=== PATIENT | female | born 1935 | race Caucasian/White ===

== ENCOUNTER → 2018-06-24 | Outpatient (CLI) | payer MEDICARE, BC ==
[2016-09-28 12:45] VITALS: BMI 30.6
[~2018-06-24] MED LIST: ALBU8.5H12 IH; AML5 PO; AZIT-1 PO; BARIUM SULFATE 176 GM BTL PO ONE; BARIUM SULFATE 340 GM POWD ONE; CLON-327 PO; Cephalexin Monohydrate PO; DILT180C81 PO; DILT180T PO; Diltiazem Hcl PO; ENAL1TAB PO; ENAL1TAB35 PO; ENAL2.5T52 PO; ETOD-1 PO; ETOD200C26 PO; FEN145 PO; FOL1 PO; FOLI-68 PO; HYDR-653 PO; LOR5/325 PO; PANT40TA65 PO; POTA-28 PO; POTA-53 PO; POTA2.5T7 PO; POTA99TA6 PO; PRED20TA6 PO; Pantoprazole Sod PO; Sucralfate PO
--- NOTE | 2018-06-24 17:41 | RADIOLOGY IMAGING REPORT ---
FACILITY: [facility] PATIENT NAME: Orquidea Gracia : 1935 MR: [id number] V: [id number] EXAM DATE: ORDERING PHYSICIAN: MICHELLE CASTAÑEDA TECHNOLOGIST: Location: [facility] Patient: Orquidea Gracia : 1935 Visit/Account:[id number] Date of Sevice: 06/24/2018 Exam type: UPPER GI SERIES W/O AIR History: GERD Comparison: None. Findings: Double contrast upper GI series was performed with thick and thin barium and air contrast at least mo derate gastroesophageal reflux was observed. There is mild narrowing at the lower esophageal sphinct er. No abnormality of the stomach, duodenal bulb or duodenal C-loop was seen. The fluoroscopy dose area product was 518.14 micro-Proctor per meter squared IMPRESSION: 1. Moderate gastric esophageal reflux was observed with mild narrowing at the lower esophageal sphin cter. Report Dictated By: Lupe Donaldson MD at 06/24/2018 5:34 PM Report E-Signed By: Lupe Donaldson MD at 06/24/2018 5:37 PM WSN:[id number]
== END ==
LOC: RAD 04:34
PROVIDERS: ATTEND Family Medicine
DX: K21.0 Gastro-esophageal reflux disease with esophagitis (principal)
CPT/HCPCS: 74240

== ENCOUNTER → 2018-07-08 | Outpatient (CLI) | payer MEDICARE, BC ==
[2016-09-28 12:45] VITALS: BMI 30.6
[~2018-07-08] MED LIST changes: -BARIUM SULFATE 176 GM BTL PO ONE; -BARIUM SULFATE 340 GM POWD ONE
--- NOTE | 2018-07-08 12:06 | RADIOLOGY IMAGING REPORT ---
FACILITY: [facility] [place] PATIENT NAME: Orquidea Gracia : 1935 MR: [id number] V: [id number] EXAM DATE: ORDERING PHYSICIAN: MICHELLE CASTAÑEDA TECHNOLOGIST: Location: [facility] Patient: Orquidea Gracia : 1935 Visit/Account:[id number] Date of Sevice: 07/08/[address] scan without contrast HISTORY: Dizziness COMPARISONS: March 07, 2017 TECHNIQUE: Non-contrast head CT was performed with sagittal and coronal reformations. One of the following dose optimization techniques was utilized in the performance of this exam: autom ated exposure control; adjustment of the mA and/or kV according to patient size; or use of iterative reconstruction technique. Specific details can be referenced in the facility's radiology CT exam ope rational policy. FINDINGS: There is no intracranial hemorrhage, hydrocephalus or midline shift. The basal cisterns, myles-white differentiation, and convexity sulci are maintained. Normal orbital soft tissues. Mild unchanged pa tchy white matter hypoattenuation most pronounced in the left frontal periventricular and left subins ular region. Unchanged small left vertex dural calcification. Clear mastoid air cells. Mild right frontoethmoidal recess mucosal thickening. Normal osseous struc tures. IMPRESSION: No acute intracranial abnormality. Unchanged left frontal and left subinsular region chronic white matter hypoattenuation in keeping wit h residua of prior ischemia. Report Dictated By: Yoandy José MD at 07/08/2018 11:59 AM Report E-Signed By: Yoandy José MD at 07/08/2018 12:03 PM WSN:[id number]
== END ==
LOC: CT 05:08
PROVIDERS: ATTEND Family Medicine
DX: R26.89 Other abnormalities of gait and mobility (principal); R42 Dizziness and giddiness; R20.2 Paresthesia of skin; R27.0 Ataxia, unspecified
CPT/HCPCS: 70450

== ENCOUNTER 2018-12-25 11:30 | Emergency (ER) | payer BC, MEDICARE ==
[2016-09-28 12:45] VITALS: BMI 30.6
--- NOTE | 2018-12-25 11:46 | ER Report ---
History and Physical Time Seen By MD: 11:46 HPI/ROS CHIEF COMPLAINT: High blood pressure and chest pain HISTORY OF PRESENT ILLNESS: This is an 83-year-old female who presents to emergency department for high blood pressure. She noticed her blood pressure was 185 systolic last night, around the same time she took her blood pressure she was starting to have some chest pain, she states she has a history of GERD, didn't think much of it, continued through the night, she did take some clonidine which did improve the discomfort as well as her blood pressure, currently her blood pressure is 154/80, she had some nausea no vomiting. She denies diaphoresis. No shortness of breath. No rashes. No recent fevers or chills. REVIEW OF SYSTEMS: Constitutional: No fever, no chills. Eyes: No discharge. ENT: No sore throat. Cardiovascular: As above. Respiratory: No cough, no shortness of breath. Gastrointestinal: No abdominal pain, no vomiting. Genitourinary: No hematuria. Musculoskeletal: No back pain. Skin: No rashes. Neurological: No headache. Allergies: Coded Allergies: Penicillins (Verified Allergy, Severe, RASH,SWELLING, 03/07/17) Sulfa (Sulfonamide Antibiotics) (Verified Allergy, Mild, 03/07/17) codeine (Verified Allergy, Mild, 03/07/17) Home Meds Active Scripts Hydrocodone Bit/Acetaminophen (HYDROCODON-ACETAMINOPHEN 5-325) 1 Each Tablet, 1 EACH PO Q4-6H PRN for PAIN, #30 TAB Prov:JAIRO LOU MD 09/28/16 Reported Medications Clonidine Hcl (CLONIDINE HCL) 0.1 Mg Tablet, 1 TAB PO PRN, #30 03/07/17 Folic Acid (FOLIC ACID) 1 Mg Tablet, 1 MG PO QDAY, TAB 09/28/16 Diltiazem Hcl (DILTIAZEM ER) 180 Mg Cap.er.deg, 180 MG PO DAILY 09/28/16 Enalapril/Hydrochlorothiazide (ENALAPRIL-HCTZ 10-25 MG TABLET) 1 Each Tablet, 1 EACH PO DAILY 07/24/16 Potassium Chloride (POTASSIUM CHLORIDE) 10 Meq Tab.er.prt, 10 MEQ PO BID 07/24/16 Pantoprazole Sodium (PANTOPRAZOLE SODIUM) 40 Mg Tablet.dr, 40 MG PO BID, TAB.SR 03/19/15 Fenofibrate,Micronized (Tricor) 145 Mg Tablet, 145 MG PO DAILY, 0 Refills 04/15/10 Past Medical/Surgical History The patient has a past medical and surgical history of nondiabetic neuropathy, heart murmur, intrafibrillation occasionally, hypertension, pneumonia, GERD, gastric ulcer, hiatal hernia, arthritis, osteoporosis, cataracts, wears glasses, hard of hearing, knee surgery, foot surgery, 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 Reviewed Nurses Notes: Yes Hx Smoking: No Smoking Status: Never Smoker Exposure to Second Hand Smoke?: No Hx Substance Use Disorder: No Hx Alcohol Use: No Constitutional Vital Sign - Last 24 Hours 12/25/18 12/25/18 12/25/18 12/25/18 11:30 11:45 11:49 11:50 Temp 98.0 Pulse ??? 75 Resp 20 B/P (MAP) 154/79 (104) 154/79 154/80 (104) Pulse Ox 95 O2 Delivery Room Air 12/25/18 12/25/18 12/25/18 12/25/18 11:55 12:00 12:05 12:15 Pulse 68 Resp 14 B/P (MAP) 155/73 (100) 172/80 (110) 147/88 (107) 158/84 (108) Pulse Ox 95 12/25/18 12/25/18 12/25/18 12/25/18 12:28 12:30 12:45 13:00 Pulse 68 Resp 18 10 B/P (MAP) 173/81 (111) 151/78 (102) 152/86 (108) 148/68 (94) Pulse Ox 93 93 12/25/18 13:30 Resp 10 B/P (MAP) 146/97 (113) Pulse Ox 96 Physical Exam General Appearance: The patient is alert, has no immediate need for airway protection and no signs of toxicity. Eyes: Pupils equal and round no pallor or injection. ENT, Mouth: Mucous membranes are moist. Respiratory: There are no retractions, lungs are clear to auscultation. Cardiovascular: Regular rate and rhythm. No murmurs, clicks or rubs. Gastrointestinal: Abdomen is soft and non tender, no masses, bowel sounds normal. Neurological: Alert and oriented 4. Moving all cavities. Falling. No focal ne uro deficits. Skin: Warm and dry, no rashes. Musculoskeletal: Neck is supple non tender. Extremities are nontender, nonswollen and have full range of motion. DIFFERENTIAL DIAGNOSIS: After history and physical exam differential diagnosis was considered for chest pain including but not limited to myocardial ischemia, pericarditis pulmonary embolus, chest wall pain, pleural inflammation and p ulmonary infectious causes. Medical Decision Making Data Points Result Diagram: 12/25/18 1204 12/25/18 1204 Laboratory Hematology Test 12/25/18 12:04 Red Blood Count 4.43 M/uL (4.17-5.56) Mean Corpuscular Volume 89.8 fL (80.0-96.0) Mean Corpuscular Hemoglobin 29.9 pg (26.0-33.0) Mean Corpuscular Hemoglobin Concent 33.3 g/dL (32.0-36.0) Red Cell Distribution Width 13.9 % (11.5-14.5) Mean Platelet Volume 9.2 fL (7.2-11.1) Neutrophils (%) (Auto) 53.3 % (39.4-72.5) Lymphocytes (%) (Auto) 32.0 % (17.6-49.6) Monocytes (%) (Auto) 12.2 % (4.1-12.4) Eosinophils (%) (Auto) 1.5 % (0.4-6.7) Basophils (%) (Auto) 1.0 % (0.3-1.4) Nucleated RBC Relative Count (auto) 0.1 /100WBC Neutrophils # (Auto) 1.8 K/uL (2.0-7.4) Lymphocytes # (Auto) 1.1 K/uL (1.3-3.6) Monocytes # (Auto) 0.4 K/uL (0.3-1.0) Eosinophils # (Auto) 0.1 K/uL (0.0-0.5) Basophils # (Auto) 0.0 K/uL (0.0-0.1) Nucleated RBC Absolute Count (auto) 0.00 K/uL Sodium Level 140 mmol/L (137-145) Potassium Level 3.6 mmol/L (3.5-5.0) Chloride Level 106 mmol/L (98-107) Carbon Dioxide Level 25 mmol/L (22-31) Blood Urea Nitrogen 28 mg/dl (7-18) Creatinine 1.30 mg/dl (0.52-1.04) Glomerular Filtration Rate Calc 38.9 Random Glucose 96 mg/dl (75-110) Calcium Level 9.9 mg/dl (8.4-10.2) Total Bilirubin 0.6 mg/dl (0.2-1.3) Aspartate Amino Transf (AST/SGOT) 35 U/L (0-35) Alanine Aminotransferase (ALT/SGPT) 17 U/L (0-56) Alkaline Phosphatase 64 U/L (0-126) Troponin I < 0.012 ng/ml Total Protein 8.2 g/dl (6.3-8.2) Albumin 4.6 g/dl (3.5-5.0) Chemistry Test 12/25/18 12:04 White Blood Count 3.3 k/uL (4.5-11.0) Red Blood Count 4.43 M/uL (4.17-5.56) Hemoglobin 13.2 g/dL (12.0-16.0) Hematocrit 39.7 % (34.0-47.0) Mean Corpuscular Volume 89.8 fL (80.0-96.0) Mean Corpuscular Hemoglobin 29.9 pg (26.0-33.0) Mean Corpuscular Hemoglobin Concent 33.3 g/dL (32.0-36.0) Red Cell Distribution Width 13.9 % (11.5-14.5) Platelet Count 211 K/uL (150-450) Mean Platelet Volume 9.2 fL (7.2-11.1) Neutrophils (%) (Auto) 53.3 % (39.4-72.5) Lymphocytes (%) (Auto) 32.0 % (17.6-49.6) Monocytes (%) (Auto) 12.2 % (4.1-12.4) Eosinophils (%) (Auto) 1.5 % (0.4-6.7) Basophils (%) (Auto) 1.0 % (0.3-1.4) Nucleated RBC Relative Count (auto) 0.1 /100WBC Neutrophils # (Auto) 1.8 K/uL (2.0-7.4) Lymphocytes # (Auto) 1.1 K/uL (1.3-3.6) Monocytes # (Auto) 0.4 K/uL (0.3-1.0) Eosinophils # (Auto) 0.1 K/uL (0.0-0.5) Basophils # (Auto) 0.0 K/uL (0.0-0.1) Nucleated RBC Absolute Count (auto) 0.00 K/uL Glomerular Filtration Rate Calc 38.9 Calcium Level 9.9 mg/dl (8.4-10.2) Total Bilirubin 0.6 mg/dl (0.2-1.3) Aspartate Amino Transf (AST/SGOT) 35 U/L (0-35) Alanine Aminotransferase (ALT/SGPT) 17 U/L (0-56) Alkaline Phosphatase 64 U/L (0-126) Troponin I < 0.012 ng/ml Total Protein 8.2 g/dl (6.3-8.2) Albumin 4.6 g/dl (3.5-5.0) EKG/Imaging EKG Interpretation 12 lead EKG: Time of EKG 1149. Rhythm: Normal sinus rhythm, ventricular rate [address]: normal QRS: normal ST segments: No ST depression or elevation identified. No significant changes from the 03/07/2017 EKG. Imaging PATIENT NAME: Orquidea Gracia : 1935 MR: [id number] V: [id number] EXAM DATE: ORDERING PHYSICIAN: NIYAH RANDLE TECHNOLOGIST: Location: [facility] [place] Patient: Orquidea Gracia : 1935 Visit/Account:[id number] Date of Sevice: 12/25/2018 CHEST PA LAT History: Chest Pain FINDINGS: Comparison studies: Comparison chest x-ray 03/07/2017 Tubes and Lines: None. Lungs and pleura: Mild hyperaeration is stable from previous exam.. No evidence of focal consolidation or pleural effusions. Mediastinum: normal. Cardiac silhouette: normal . Osseous structures: Unremarkable for age . IMPRESSION: No acute cardiopulmonary pathology identified. Report Dictated By: James Azevedo MD at 12/25/2018 1:20 PM Report E-Signed By: James Azevedo MD at 12/25/2018 1:22 PM WSN:[id number] ED Course/Re-evaluation Clinical Indication for ER IV: IV Access ED Course The patient was admitted to room. A history and physical obtained. Differential diagnoses were considered. An IV was started. A CBC, CMP, troponin were obtained. EKG showing normal sinus rhythm. Lab studies unremarkable other than white count 3.3 and the creatinine of 1.3. Negative troponin. The patient's discomfort began last night, no delta troponin ordered at this time. Acute review the results with the patient. She was given a GI cocktail, symptoms have resolved in the emergency department. Negative two-view chest x-ray. She was given a liter of fluid. I did recommend not checking her blood pressure so frequently, as this could be contributed to the elevated blood pressure as well, I did recommend following up with Dr. Calderon as soon as possible they can reevaluate her blood pressure medications. Patient had no other questions or concerns at this time and was discharged home. Patient was agreeable with this plan of care. Decision to Disposition Date: December 25, 2018 Decision to Disposition Time: 13:32 Depart Departure Latest Vital Signs Vital Signs Date Time Temp Pulse Resp B/P (MAP) Pulse Ox O2 Delivery O2 Flow Rate FiO2 12/25/18 13:30 10 146/97 (113) 96 12/25/18 12:30 68 12/25/18 11:49 98.0 Room Air Impression: Primary Impression: Chest pain, non-cardiac Additional Impressions: History of hypertension Acid reflux disease Condition: Improved Disposition: HOME OR SELF-CARE Referrals: MICHELLE CALDERON DO (PCP) 5 Days Patient Instructions: Gastroesophageal Reflux Disease (ED), Hypertension (ED) Additional Instructions: There were no concerning findings on your Xray or EKG. The blood work looked good, your kidney function was slightly elevated, sometimes medications can cause this as well as hydration status, please have Dr. Calderon recheck when you follow up. Continue taking your regular medications. You may need to change your blood pressure medication, this is something you can do with Dr. Calderon. I would recommend not checking your blood pressure so frequently, unless you feel symptomatic. Drink plenty of water. Get plenty of rest. Return to the ED for any other concerns or worsening symptoms. Problem Qualifiers Additional Impressions: Acid reflux disease Esophagitis presence: esophagitis presence not specified Qualified Codes: K21.9 - Gastro-esophageal reflux disease without esophagitis NIYAH RANDLE TIPPLE REPAIRER-BC December 25, 2018 11:46
[2018-12-25] MEDS ORDERED: ASPIRIN 81 MG CHEW PO ONE (11:50)
[2018-12-25] MEDS ORDERED: ONDANSETRON 4 MG/2 ML VIAL IVP ONE (11:50)
[2018-12-25] MEDS ORDERED: NS(*) 0.9% 1000 ML BAG 1,000 ML IV ONE (11:50)
[2018-12-25 12:13] LABS: PLATELET COUNT, AUTOMATED 211 K/uL (150-450)
--- NOTE | 2018-12-25 12:33 | EKG ---
FACILITY: [facility] [place] PATIENT NAME: VINCENZO BERNARD : [id number] MR: [id number] V: [id number] EXAM DATE: ORDERING PHYSICIAN: NIYAH RANDLE TECHNOLOGIST: AL Pryor Reason : Blood Pressure : / mmHG Vent. Rate : 068 BPM Atrial Rate : 068 BPM P-R Int : 206 ms QRS Dur : 110 ms QT Int : 402 ms P-R-T Axes : 081 001 006 degrees QTc Int : 427 ms Sinus rhythm Probable left atrial enlargement Q waves III, AVF - question previous infarct Nonspecific interventricular conduction delay Abnormal ECG Confirmed by KENDELL MITCHELL ([id number]) on 12/25/2018 9:26:42 PM Referred By: Confirmed By:KENDELL MITCHELL
--- NOTE | 2018-12-25 13:25 | RADIOLOGY IMAGING REPORT ---
[facility]AC[facility] PATIENT NAME: Orquidea Gracia : 1935 MR: [id number] V: [id number] EXAM DATE: ORDERING PHYSICIAN: NIYAH RANDLE TECHNOLOGIST: [place] [facility] [place]: Orquidea Gracia : 1935 Visit/Account:[id number] Date of Sevice: 12/25/2018 CHEST PA LAT History: Chest Pain FINDINGS: Comparison studies: Comparison chest x-ray 03/07/2017 Tubes and Lines: None. Lungs and pleura: Mild hyperaeration is stable from previous exam.. No evidence of focal consolida tion or pleural effusions. Mediastinum: normal. Cardiac silhouette: normal . Osseous structures: Unremarkable for age . IMPRESSION: No acute cardiopulmonary pathology identified. Report Dictated By: James Azevedo MD at 12/25/2018 1:20 PM Report E-Signed By: James Azevedo MD at 12/25/2018 1:22 PM [id number]
[2018-12-25 13:30] VITALS: BP 146/97
[2018-12-25] MEDS ORDERED: LIDOCAINE 2% VISC SLN 15ML UDC PO ONE (13:35)
[2018-12-25] MEDS ORDERED: MAG HYD/AL HYD/SIMETH 30ML UDC PO ONE (13:35)
== END 2018-12-25 13:57 | disposition home or self-care (01) ==
LOC: ER 11:45
DX: K21.9 Gastro-esophageal reflux disease without esophagitis (principal); R07.9 Chest pain, unspecified; I10 Essential (primary) hypertension
CPT/HCPCS: 71046; 84484; 85025; 93005; 96361; 96374; 99284; A9270; J2405; J7030; 82040; 82247; 82310; 82374; 82435; 82565; 82947; 84075; 84132; 84155; 84295; 84450; 84460; 84520

== ENCOUNTER → 2019-01-27 | Outpatient (CLI) | payer MEDICARE ==
[2016-09-28 12:45] VITALS: BMI 30.6
== END ==
LOC: US 02:56
PROVIDERS: ATTEND Nurse Practitioner Family
DX: I35.1 Nonrheumatic aortic (valve) insufficiency (principal)
CPT/HCPCS: 93306

== ENCOUNTER 2019-03-18 23:44 | Inpatient (IN) | payer MEDICARE ==
[2016-09-28 12:45] VITALS: Wt 78.7 kg
[~2019-03-18 23:44] MED LIST changes: -CALC-901 PO; -CHOL10005 PO; -LACT1CAP6 PO; -MAGN400T52 PO; -NIAC500T85 PO; -RIVA1TAB PO; -VITA-197 PO; -ZINC50TA9 PO; -[UNRECOGNIZED DRUG - CODE] PO
--- NOTE | 2019-03-18 23:55 | ER Report ---
History and Physical Time Seen By MD: 23:49 Hx. of Stated Complaint: chest pain on sat. did not call ems. tonight had cp at 7pm, it resolved. this episode began 10-15 minutes ago HPI/ROS CHIEF COMPLAINT: chest pain and shortness of breath HISTORY OF PRESENT ILLNESS: This is an 84 year old female. She has been having chest pain tonight. Lower sternal area. Not sharp, but not squeezing either. No radiation. Came on at rest at about 1900 hours. Took a Clonidine tablets because her blood pressure was high, and the chest pain went away. The shortness of breath did not go away. She feels very short of breath with even just standing up. She has had some mild shortness of breath since the weekend. She also had an episode of chest pain on Sunday which she thought was reflux and eventually went away. She had another episode of chest pain tonight about 2330 hours and decided she needed to come to the hospital. EMS found her saturations to be low 80s on room air. Improved to 95% on 4 liters by nasal canula. She denies any nausea. She denies cough or fevers. Currently having a workup by her primary nurse practitioner for edema and diastolic dysfunction with recent echo and follow-up next week. REVIEW OF SYSTEMS: Constitutional: No fever or chills. Eyes: Poor vision, unchanged tonight. ENT: No sore throat. No congestion. Hard of hearing. Cardiovascular: As above. Respiratory: As above. Gastrointestinal: Some epigastric discomfort. No change in bowel movements. Genitourinary: No dysuria or frequency. Musculoskeletal: Chronic joint pain, but nothing new. Skin: No rashes. Neurological: Feels very fatigued and has chronic peripheral neuropathy. Allergies: Coded Allergies: Penicillins (Verified Allergy, Severe, RASH,SWELLING, 03/18/19) morphine (Verified Allergy, Intermediate, 03/18/19) Sulfa (Sulfonamide Antibiotics) (Verified Allergy, Mild, 03/18/19) codeine (Verified Allergy, Mild, 03/18/19) Home Meds Reported Medications Calcium Citrate/Vitamin D3 (CALCIUM CITRATE - VIT D CAPLET) 1 Each Tablet, 6 TAB PO QDAY 1200 MG CALCIUM WITH 1500 IU VIT D 03/19/19 Zinc (ZINC) 50 Mg Tablet, 50 MG PO QHS 03/19/19 Niacin (NIACIN) 500 Mg Tablet, 500 MG PO QHS 03/19/19 Lactobacillus Combination No.4 (PROBIOTIC) 1 Each Capsule, 1 CAP PO QDAY, CAPSULE BRAND: FORTIFY 50 BILLION 03/19/19 Magnesium Oxide (MAGOX 400) 400 Mg Tablet, 4 TAB PO QDAY 03/19/19 Cholecalciferol (Vitamin D3) (VITAMIN D3) 1,000 Unit Tablet, 2000 UNIT PO DAILY, TAB 03/19/19 Cyanocobalamin (Vitamin B-12) (Vitamin B-12) 3,000 Mcg Capsule, 2 CAP PO BID 03/19/19 Vitamin E Mixed (VITAMIN E) 400 Unit Capsule, 400 UNIT PO QDAY, CAPSULE 03/19/19 Folic Acid (FOLIC ACID) 1 Mg Tablet, 1 MG PO QDAY, TAB 09/28/16 Diltiazem Hcl (DILTIAZEM ER) 180 Mg Cap.er.deg, 180 MG PO DAILY 09/28/16 Enalapril/Hydrochlorothiazide (ENALAPRIL-HCTZ 10-25 MG TABLET) 1 Each Tablet, 2 TAB PO QAM 07/24/16 Potassium Chloride (POTASSIUM CHLORIDE) 10 Meq Tab.er.prt, 10 MEQ PO BID 07/24/16 Pantoprazole Sodium (PANTOPRAZOLE SODIUM) 40 Mg Tablet.dr, 40 MG PO BID, TAB.SR 03/19/15 Fenofibrate,Micronized (Tricor) 145 Mg Tablet, 145 MG PO DAILY, 0 Refills 04/15/10 Discontinued Reported Medications Clonidine Hcl (CLONIDINE HCL) 0.1 Mg Tablet, 1 TAB PO PRN, #30 03/07/17 Discontinued Scripts Hydrocodone Bit/Acetaminophen (HYDROCODON-ACETAMINOPHEN 5-325) 1 Each Tablet, 1 EACH PO Q4-6H PRN for PAIN, #30 TAB Prov:JAIRO LOU MD 09/28/16 Past Medical/Surgical History Past medical: history of atrial fibrillation, Hypertension, Hyperlipidemia, GERD, ulcer disease with bleeding ulcer, hypokalemia, non-diabetic peripheral neuropathy, osteoarthritis, hard of hearing. Has history of heart murmur. Recent workup for peripheral edema. Cataracts. Surgical history: inguinal hernia repair for encarcerated R inguinal hernia, knee surgery, foot surgery, spinal cord tumor surgery in 1986, Tonsillectomy. Reviewed Nurses Notes: Yes Hx Smoking: No Smoking Status: Never Smoker Exposure to Second Hand Smoke?: No Hx Substance Use Disorder: No Hx Alcohol Use: No Constitutional Vital Sign - Last 24 Hours 03/18/19 03/18/19 03/18/19 03/18/19 23:42 23:44 23:52 23:59 Temp 98.4 Pulse 95 94 89 Resp 26 17 B/P (MAP) 170/104 Pulse Ox 96 95 99 O2 Delivery Nasal Cannula O2 Flow Rate 3.0 03/19/19 03/19/19 03/19/19 03/19/19 00:00 00:14 00:29 00:30 Pulse 86 79 Resp 25 14 B/P (MAP) 150/88 (108) 136/87 (103) Pulse Ox 98 95 03/19/19 03/19/19 03/19/19 03/19/19 00:35 00:50 01:00 01:05 Pulse 77 ? Resp 21 B/P (MAP) ???/??? (1665) Pulse Ox 95 03/19/19 03/19/19 03/19/19 03/19/19 01:14 01:20 01:30 01:50 Pulse 77 78 Resp 18 21 B/P (MAP) 171/75 (107) 133/99 (110) Pulse Ox 97 95 03/19/19 03/19/19 03/19/19 03/19/19 02:00 02:05 02:10 02:25 Pulse 80 76 74 Resp 17 19 B/P (MAP) 165/103 (123) Pulse Ox 95 93 03/19/19 03/19/19 03/19/19 03/19/19 02:30 02:40 02:55 03:08 Pulse 67 68 Resp 16 13 B/P (MAP) 146/89 (108) 161/99 (119) Pulse Ox 95 95 03/19/19 03/19/19 03/19/19 03/19/19 03:10 03:15 03:30 03:45 Pulse 90 78 70 70 Resp 34 10 11 19 B/P (MAP) 130/93 (105) Pulse Ox 96 96 96 96 03/19/19 03/19/19 03/19/19 03/19/19 04:00 04:15 04:20 04:30 Pulse 69 66 64 Resp 16 14 15 B/P (MAP) 132/82 (99) 111/81 (91) Pulse Ox 95 95 96 03/19/19 03/19/19 03/19/19 03/19/19 04:35 04:50 05:00 05:05 Pulse 62 68 64 Resp 16 22 15 B/P (MAP) 134/79 (97) Pulse Ox 96 96 96 03/19/19 03/19/19 03/19/19 03/19/19 05:20 05:25 05:30 05:40 Pulse 60 59 70 Resp 16 24 19 B/P (MAP) 140/81 (100) Pulse Ox 97 97 97 03/19/19 03/19/19 03/19/19 03/19/19 05:54 05:55 06:00 06:10 Pulse 83 71 Resp 23 21 B/P (MAP) 155/84 (107) 147/89 (108) Pulse Ox 98 97 03/19/19 03/19/19 03/19/19 03/19/19 06:25 06:30 06:35 06:40 Pulse 65 65 65 64 Resp 17 21 17 19 B/P (MAP) 133/117 (122) Pulse Ox 97 97 97 96 03/19/19 03/19/19 03/19/19 03/19/19 06:45 06:50 06:55 06:57 Pulse 64 65 64 Resp 18 16 14 B/P (MAP) 145/92 (109) Pulse Ox 97 97 96 03/19/19 07:00 Pulse 71 Resp 14 B/P (MAP) 162/92 (115) Pulse Ox 97 Physical Exam General Appearance: The patient is alert. Somewhat anxious. Non-toxic in appearance. Eyes: Pupils are equal, round. Reactive to light. No pallor, injection or icterus. Extraocular movements are intact. ENT: Mucous membranes are moist. Normal oral mucosa. Posterior oropharynx is no rmal. Neck: Supple and non tender. No lymphadenopathy. Respiratory: She is short of breath with any small activity, even brief transfers. Lungs are clear to auscultation. Cardiovascular: Regular rate and rhythm. Has a 2/6 systolic murmur. No gallop or rub noted. Normal capillary refill. Has 2+ peripheral edema in ankles, trace mid-tibia. Gastrointestinal: Abdomen is soft, with some discomfort in epigastric area that she states she always has. No rebound or guarding. No masses or organomegaly. Normal active bowel sounds. No costovertebral angle tenderness with percussion. Neurological: Alert and oriented x3. Cranial nerves II through XII show no acute deficits on exam. No focal neurologic deficits in the extremities. Skin: Warm and dry. No rashes. Musculoskeletal: Extremities are nontender. Full range of motion. No tenderness in palpation of the cervical, thoracic and lumbar spine. No chest wall tenderness with palpation. DIFFERENTIAL DIAGNOSIS: After history and physical exam, differential diagnosis was considered for chest pain and shortness of breath including but not limited to myocardial ischemia, heart attack, pericarditis, pulmonary embolus and pulmonary infectious causes. Medical Decision Making Data Points Result Diagram: 03/19/19 0558 03/19/19 0558 Laboratory Hematology Test 03/19/19 05:58 White Blood Count 5.1 k/uL (4.5-11.0) Red Blood Count 4.02 M/uL (4.17-5.56) L Hemoglobin 12.4 g/dL (12.0-16.0) Hematocrit 36.1 % (34.0-47.0) Mean Corpuscular Volume 89.6 fL (80.0-96.0) Mean Corpuscular Hemoglobin 30.8 pg (26.0-33.0) Mean Corpuscular Hemoglobin Concent 34.4 g/dL (32.0-36.0) Red Cell Distribution Width 14.3 % (11.5-14.5) Platelet Count 151 K/uL (150-450) Mean Platelet Volume 9.1 fL (7.2-11.1) Neutrophils (%) (Auto) 55.8 % (39.4-72.5) Lymphocytes (%) (Auto) 28.9 % (17.6-49.6) Monocytes (%) (Auto) 12.8 % (4.1-12.4) H Eosinophils (%) (Auto) 1.9 % (0.4-6.7) Basophils (%) (Auto) 0.6 % (0.3-1.4) Nucleated RBC Relative Count (auto) 0.1 /100WBC Neutrophils # (Auto) 2.8 K/uL (2.0-7.4) Lymphocytes # (Auto) 1.5 K/uL (1.3-3.6) Monocytes # (Auto) 0.6 K/uL (0.3-1.0) Eosinophils # (Auto) 0.1 K/uL (0.0-0.5) Basophils # (Auto) 0.0 K/uL (0.0-0.1) Nucleated RBC Absolute Count (auto) 0.00 K/uL Chemistry Test 03/18/19 23:35 03/19/19 00:00 03/19/19 05:58 B-Type Natriuretic Peptide 148 pg/ml (0-100) Amylase Level 84 U/L (0-110) Lipase 119 U/L (23-300) Sodium Level 135 mmol/L (137-145) Potassium Level 3.7 mmol/L (3.5-5.0) Chloride Level 102 mmol/L (98-107) Carbon Dioxide Level 23 mmol/L (22-31) Blood Urea Nitrogen 25 mg/dl (7-18) Creatinine 1.10 mg/dl (0.52-1.04) Glomerular Filtration Rate Calc 47.1 Random Glucose 98 mg/dl (75-110) Calcium Level 9.4 mg/dl (8.4-10.2) Total Bilirubin 0.7 mg/dl (0.2-1.3) Aspartate Amino Transf (AST/SGOT) 33 U/L (0-35) Alanine Aminotransferase (ALT/SGPT) 32 U/L (0-56) Alkaline Phosphatase 60 U/L (0-126) Troponin I 0.131 ng/ml Total Protein 7.1 g/dl (6.3-8.2) Albumin 3.9 g/dl (3.5-5.0) Coagulation Test 03/18/19 23:35 D-Dimer Quantitative (PE/DVT) 7.55 ug/ml (0-0.50) EKG/Imaging EKG Interpretation 12 lead EKG: Rhythm: Normal sinus rhythm, rate 83 [place]: normal QRS: Q waves noted in leads 3 and aVF, unchanged from prior EKGs ST segments: Nonspecific ST and T-wave changes without any elevation or depression that would meet criteria for ischemia Imaging CHEST SINGLE AP 03/19/2019 00:05 hours. HISTORY: Chest Pain. COMPARISON: 12/25/2018 and studies dating to 07/09/2014. TECHNIQUE: Portable AP view of the chest. FINDINGS: TUBES/LINES/HARDWARE: None. PULMONARY/PLEURA: Right lung is clear. There is linear atelectasis or scarring in the left lateral lower lung field, unchanged. There is no pneumothorax or pleural effusion. CARDIOMEDIASTINAL: The cardiac silhouette is enlarged, stable. The mediastinal silhouette is within normal limits. There is mild aortic calcification. BONES/SOFT TISSUES: No acute osseous abnormality. The visible abdomen is normal. IMPRESSION: 1. No acute cardiopulmonary process. Report Dictated By: Sowmya Waldrop at 03/19/2019 1:[address] angiogram of the chest: Indication: Chest pain and dyspnea. Technique: Helical CT was performed through the chest following IV contrast enha ncement with 75 cc of Isovue 370. Multiplanar reconstructions and MIP images are reviewed. One of the following dose optimization techniques was utilized in the performance of this exam: Automated exposure control; adjustment of the mA and/or kV according to the patient's size; or use of an iterative reconstruction technique. Specific details can be referenced in the facility's radiology CT exam operational policy. Comparison: None available. Pulmonary arteries: There are bilateral acute pulmonary emboli. On the left, there is a saddle embolus at the bifurcation of the left main pulmonary artery, with extensive clot extending into the left upper and lower lobes. On the right, there are moderate-sized emboli in the right upper lobe and right lower lobe, and there are small emboli in the right middle lobe. There is no evidence of embolus in the main pulmonary artery. The right ventricle is not appreciably dilated, but the right atrium appears dilated, compatible with elevated pulmonary artery pressure. Aorta and great vessels: There is mild atherosclerotic calcification in the aort ic wall. There are no signs of aortic aneurysm or dissection. Heart and pericardial soft tissues: Atherosclerotic calcification is present in the coronary arteries. The heart is enlarged. No pericardial effusion or soft tissue abnormality is identified. Mediastinal soft tissues: Unremarkable. Lung fernandez: Well-expanded. No focal parenchymal consolidation or volume loss are identified. A few tiny, nonspecific nodular opacities are present. Pleural spaces: No evidence of effusion, focal pleural thickening, or pneumothorax. Skeletal structures: There are chronic degenerative changes in the shoulder and thoracic spine. No fracture or compression deformity is identified. Upper abdomen: Unremarkable, as visualized. IMPRESSION: Bilateral acute pulmonary emboli, with a significant clot burden in both lungs, left more than right. A preliminary report was called to Dr. Baxter at [facility] at 0130 hours. Report Dictated By: Fili Morris MD at 03/19/2019 1:30 AM ED Course/Re-evaluation Clinical Indication for ER IV: Hydration, IV Access ED Course Patient had labs drawn. EKG shows no acute changes. Chest x-ray with no acute changes. CTA done after D-dimer was found to be elevated. Positive for PE. Labs show chronic kidney disease. Elevated Troponin as well, felt to be due to the PE. Discussed with the patient, recommended admission, discussed admission here versus transfer for cardiology care. The patient would prefer to be admitted here. Discussed with Dr. Mckeon, who accepted for admission. Admission on hold due to staffing issues on the medical floor. Kept on hold here in the ER. Lovenox 1mg/kg SC given for treatment of the PE. NS at 100cc/hr overnight. Decision to Disposition Date: Mar 19, 2019 Decision to Disposition Time: 02:22 Depart Departure Latest Vital Signs Vital Signs Date Time Temp Pulse Resp B/P (MAP) Pulse Ox O2 Delivery O2 Flow Rate FiO2 03/19/19 07:00 71 14 162/92 (115) 97 03/18/19 23:52 3.0 03/18/19 23:42 98.4 Nasal Cannula Impression: Primary Impression: Pulmonary embolism Additional Impression: Chronic kidney disease Condition: Condition Unchanged Disposition: Admitted from ER Referrals: MICHELLE CASTAÑEDA DO (PCP) Problem Qualifiers Primary Impression: Pulmonary embolism Pulmonary embolism type: saddle Chronicity: acute Acute cor pulmonale presence: without acute cor pulmonale Qualified Codes: I26.92 - Saddle embolus of pulmonary artery without acute cor pulmonale Additional Impression: Chronic kidney disease Chronic kidney disease stage: stage 3 (moderate) Qualified Codes: N18.3 - Chronic kidney disease, stage 3 (moderate) PURA BAXTER MD Mar 18, 2019 23:55
[2019-03-19] MEDS ORDERED: ASPIRIN 81 MG CHEW PO ONE (00:05)
[2019-03-19] MEDS ORDERED: PANTOPRAZOLE SOD 40 MG IV VIAL IVP ONE (00:10)
[2019-03-19] MEDS ORDERED: EMS NS 0.9%(*) 1000 ML BAG 1,000 ML IV ONE (00:20)
[2019-03-19 00:34] LABS: PLATELET COUNT, AUTOMATED 164 K/uL (150-450)
[2019-03-19] MEDS ORDERED: IOPAMIDOL 76% 100 ML INFUS BTL 100 ML ONE (00:45)
[2019-03-19] MEDS ORDERED: NS(*) 0.9% 50 ML BAG 50 ML ONE (00:46)
--- NOTE | 2019-03-19 00:49 | EKG ---
FACILITY: [facility] PATIENT NAME: VINCENZO BERNARD : [id number] MR: [id number] V: [id number] EXAM DATE: ORDERING PHYSICIAN: PURA MONTGOMERY TECHNOLOGIST: FRANKIE Pryor Reason : CARDIAC Blood Pressure : / mmHG Vent. Rate : 083 BPM Atrial Rate : 083 BPM P-R Int : 192 ms QRS Dur : 110 ms QT Int : 386 ms P-R-T Axes : 076 053 067 degrees QTc Int : 453 ms Normal sinus rhythm Nonspecific T wave abnormality Abnormal ECG When compared with ECG of 25-DEC-2018 11:49, Previous ECG has undetermined rhythm, needs review Criteria for Inferior infarct are no longer present Nonspecific T wave abnormality no longer evident in Inferior leads T wave inversion now evident in Anterior leads Confirmed by KEELEY HIDALGO ([id number]) on 03/19/2019 6:38:33 AM Referred By: Confirmed By:KEELEY HIDALGO
--- NOTE | 2019-03-19 01:27 | RADIOLOGY IMAGING REPORT ---
FACILITY: [facility] PATIENT NAME: Orquidea Gracia : 1935 MR: [id number] V: [id number] EXAM DATE: ORDERING PHYSICIAN: PURA MONTGOMERY TECHNOLOGIST: Location: [facility] Patient: Orquidea Gracia : 1935 Visit/Account:[id number] Date of Sevice: 03/19/2019 CHEST SINGLE AP 03/19/2019 00:05 hours. HISTORY: Chest Pain. COMPARISON: 12/25/2018 and studies dating to 07/09/2014. TECHNIQUE: Portable AP view of the chest. FINDINGS: TUBES/LINES/HARDWARE: None. PULMONARY/PLEURA: Right lung is clear. There is linear atelectasis or scarring in the left lateral lo wer lung field, unchanged. There is no pneumothorax or pleural effusion. CARDIOMEDIASTINAL: The cardiac silhouette is enlarged, stable. The mediastinal silhouette is within n ormal limits. There is mild aortic calcification. BONES/SOFT TISSUES: No acute osseous abnormality. The visible abdomen is normal. IMPRESSION: 1. No acute cardiopulmonary process. Report Dictated By: Sowmya Waldrop at 03/19/2019 1:17 AM Report E-Signed By: Sowmya Waldrop at 03/19/2019 1:18 AM WSN:[id number]
--- NOTE | 2019-03-19 02:04 | RADIOLOGY IMAGING REPORT ---
FACILITY: [facility] PATIENT NAME: Orquidea Gracia : 1935 MR: [id number] V: [id number] EXAM DATE: ORDERING PHYSICIAN: PURA BAXTER TECHNOLOGIST: Location: [facility] [place] Patient: Orquidea Gracia : 1935 Visit/Account:[id number] Date of Sevice: 03/19/2019 CT angiogram of the chest: Indication: Chest pain and dyspnea. Technique: Helical CT was performed through the chest following IV contrast enhancement with 75 cc of Isovue 370. Multiplanar reconstructions and MIP images are reviewed. One of the following dose optimization techniques was utilized in the performance of this exam: Autom ated exposure control; adjustment of the mA and/or kV according to the patient's size; or use of an i terative reconstruction technique. Specific details can be referenced in the facility's radiology CT exam operational policy. Comparison: None available. Pulmonary arteries: There are bilateral acute pulmonary emboli. On the left, there is a saddle embolus at the bifurcation of the left main pulmonary artery, with ext ensive clot extending into the left upper and lower lobes. On the right, there are moderate-sized emboli in the right upper lobe and right lower lobe, and there are small emboli in the right middle lobe. There is no evidence of embolus in the main pulmonary artery. The right ventricle is not appreciably dilated, but the right atrium appears dilated, compatible with elevated pulmonary artery pressure. Aorta and great vessels: There is mild atherosclerotic calcification in the aortic wall. There are no signs of aortic aneurysm or dissection. Heart and pericardial soft tissues: Atherosclerotic calcification is present in the coronary arteries . The heart is enlarged. No pericardial effusion or soft tissue abnormality is identified. Mediastinal soft tissues: Unremarkable. Lung fernandez: Well-expanded. No focal parenchymal consolidation or volume loss are identified. A few t iny, nonspecific nodular opacities are present. Pleural spaces: No evidence of effusion, focal pleural thickening, or pneumothorax. Skeletal structures: There are chronic degenerative changes in the shoulder and thoracic spine. No fr acture or compression deformity is identified. Upper abdomen: Unremarkable, as visualized. IMPRESSION: Bilateral acute pulmonary emboli, with a significant clot burden in both lungs, left more than right. A preliminary report was called to Dr. Baxter at [facility] [place] at 0130 hours. Report Dictated By: Fili Morris MD at 03/19/2019 1:30 AM Report E-Signed By: Fili Morris MD at 03/19/2019 1:56 AM WSN:[id number]
[2019-03-19] MEDS ORDERED: ENOXAPARIN 100 MG/ML SYR SC SCH ×2 (02:15→14:00)
[2019-03-19] MEDS ORDERED: NS(*) 0.9% 1000 ML BAG 1,000 ML IV ONE (02:15)
[2019-03-19 06:13] LABS: PLATELET COUNT, AUTOMATED 151 K/uL (150-450)
[2019-03-19 08:10] VITALS: BP 174/118
[2019-03-19] MEDS ORDERED: NS(*) 0.9% 1000 ML BAG 1,000 ML IV PRN (08:40)
[2019-03-19] MEDS ORDERED: FLUSH 10 ML SYR IVP PRN (08:40)
--- NOTE | 2019-03-19 10:01 | History & Physical ---
History of Present Illness Chief Complaint Short of breath History of Present Illness 84yo female with PMHx significant for HTN, short-lived episode of a-fib, osteoarthritis, benign thoracic spinal cord tumor. She reports onset of dyspnea with associated chest tightness/pain late yesterday. She states she has had at least 3 or 4 similar episodes over the past two weeks. She denies any N/V/diaphoresis. She has had some bilateral lower extremity edema. No leg pain or cramps. She has had some audible wheezing intermittently, but especially with exertion. She denies any cough or sputum. No fevers or chills. She was evaluated in the ER and found to have bilateral PE. She was recommended for admission. History Problems: (1) Spinal cord tumor Status: Resolved (2) Gastrointestinal hemorrhage Status: Resolved (3) Hyperlipemia Status: Chronic (4) HTN (hypertension) Status: Chronic (5) Osteoarthritis Status: Chronic (6) Inguinal hernia Status: Resolved (7) UTI (lower urinary tract infection) Status: Resolved (8) New onset atrial fibrillation Status: Resolved Comment: Short-lived/no recurrences Home Meds Active Scripts Hydrocodone Bit/Acetaminophen (HYDROCODON-ACETAMINOPHEN 5-325) 1 Each Tablet, 1 EACH PO Q4-6H PRN for PAIN, #30 TAB Prov:JAIRO LOU MD 09/28/16 Reported Medications Clonidine Hcl (CLONIDINE HCL) 0.1 Mg Tablet, 1 TAB PO PRN, #30 03/07/17 Folic Acid (FOLIC ACID) 1 Mg Tablet, 1 MG PO QDAY, TAB 09/28/16 Diltiazem Hcl (DILTIAZEM ER) 180 Mg Cap.er.deg, 180 MG PO DAILY 09/28/16 Enalapril/Hydrochlorothiazide (ENALAPRIL-HCTZ 10-25 MG TABLET) 1 Each Tablet, 1 EACH PO DAILY 07/24/16 Potassium Chloride (POTASSIUM CHLORIDE) 10 Meq Tab.er.prt, 10 MEQ PO BID 07/24/16 Pantoprazole Sodium (PANTOPRAZOLE SODIUM) 40 Mg Tablet.dr, 40 MG PO BID, TAB.SR 03/19/15 Fenofibrate,Micronized (Tricor) 145 Mg Tablet, 145 MG PO DAILY, 0 Refills 04/15/10 Allergies: Coded Allergies: Penicillins (Verified Allergy, Severe, RASH,SWELLING, 03/18/19) morphine (Verified Allergy, Intermediate, 03/18/19) Sulfa (Sulfonamide Antibiotics) (Verified Allergy, Mild, 03/18/19) codeine (Verified Allergy, Mild, 03/18/19) Patient History: FH: aortic aneurysm FHx: heart failure Heart valve abnormality Hx Smoking: No Smoking Status: Never Smoker Exposure to Second Hand Smoke?: No Hx Alcohol Use: No Hx Substance Use Disorder: No Review of Systems Constitutional: No Fever, No Chills, No Night Sweats Neurological: Weakness; No Syncope Eyes: No Vision Change, No Loss of Vision ENT: Hearing Loss (chronic) Cardiovascular: Chest Pain; No Palpitations Respiratory: Shortness of Breath, Wheezing; No Cough Gastrointestinal: No Nausea, No Vomiting, No Hematemesis, No Hematochezia, No Melena, No Abdominal Pain Genitourinary: No Dysuria Musculoskeletal: No Pain, No Impaired Mobility Psychiatric: Depression Exam Vital Signs Vital Signs Date Time Temp Pulse Resp B/P (MAP) Pulse Ox O2 Delivery O2 Flow Rate FiO2 03/19/19 08:10 78 21 174/118 (136) 92 Nasal Cannula 2.0 78 03/18/19 23:42 98.4 General Appearance: Alert, Awake Neuro: No Gross deficits Eyes: PERRLA ENT: Oropharynx Clear Neck: No Masses Cardiovascular: Regular Rate and Rhythm Respiratory: Clear to Auscultation Chest: No Tenderness GI: Abd Soft and Non-Tender : No CVA Tenderness Lymph: No Adenopathy Extremities: Warm, Perfused, Edema (trace-1+ both LE below knees) Psych: Alert & Oriented X3 Medical Decision Making Data Points Result Diagram: 03/19/1955703/19/19 05 Item Value Date Time Albumin 3.9 g/dl 03/19/19 05 Total Protein 7.1 g/dl 03/19/19 0558 Troponin I 0.131 ng/ml *H 03/19/19 05 Alkaline Phosphatase 60 U/L 03/19/19 0558 Alanine Aminotransferase (ALT/SGPT) 32 U/L 03/19/19 05 Aspartate Amino Transf (AST/SGOT) 33 U/L 03/19/19 05 Total Bilirubin 0.7 mg/dl 03/19/19 0558 Calcium Level 9.4 mg/dl 03/19/19 0558 Calcium Level 10.1 mg/dl 03/18/192334 Total Bilirubin 0.6 mg/dl 03/18/192334 Aspartate Amino Transf (AST/SGOT) 43 U/L H 03/18/192334 Alanine Aminotransferase (ALT/SGPT) 36 U/L 03/18/192334 Alkaline Phosphatase 76 U/L 03/18/192334 Troponin I 0.143 ng/ml *H 03/18/192334 Total Protein 8.2 g/dl 03/18/192334 Albumin 4.5 g/dl 03/18/192334 Amylase Level 84 U/L 03/19/19 0000 Lipase 119 U/L 03/19/19 0000 B-Type Natriuretic Peptide 148 pg/ml H 03/18/192334 D-Dimer Quantitative (PE/DVT) 7.55 ug/ml H 03/18/192334 White Blood Count 5.2 k/uL 03/18/192334 Hemoglobin 14.0 g/dL 03/18/192334 Hematocrit 40.3 % 03/18/192334 Platelet Count 164 K/uL 03/18/192334 EKG / Imaging EKG Interpretation PATIENT NAME: VINCENZO GRACIA : [id number] MR: [id number] V: [id number] EXAM DATE: ORDERING PHYSICIAN: PURA BAXTER TECHNOLOGIST: FRANKIE Test Reason : CARDIAC Blood Pressure : / mmHG Vent. Rate : 083 BPM Atrial Rate : 083 BPM P-R Int : 192 ms QRS Dur : 110 ms QT Int : 386 ms P-R-T Axes : 076 053 067 degrees QTc Int : 453 ms Normal sinus rhythm Nonspecific T wave abnormality Abnormal ECG When compared with ECG of 25-DEC-2018 11:49, Previous ECG has undetermined rhythm, needs review Criteria for Inferior infarct are no longer present Nonspecific T wave abnormality no longer evident in Inferior leads T wave inversion now evident in Anterior leads Confirmed by KEELEY HIDALGO ([id number]) on 03/19/2019 6:38:33 AM Referred By: Confirmed By:KEELEY HIDALGO Imaging PATIENT NAME: Vincenzo Gracia : 1935 MR: [id number] V: [id number] EXAM DATE: ORDERING PHYSICIAN: PURA BAXTER TECHNOLOGIST: Location: [facility] [place] Patient: Vincenzo Gracia : 1935 Visit/Account:[id number] Date of Sevice: 03/19/2019 CT angiogram of the chest: Indication: Chest pain and dyspnea. Technique: Helical CT was performed through the chest following IV contrast enhancement with 75 cc of Isovue 370. Multiplanar reconstructions and MIP images are reviewed. One of the following dose optimization techniques was utilized in the performance of this exam: Automated exposure control; adjustment of the mA and/or kV according to the patient's size; or use of an iterative reconstruction technique. Specific details can be referenced in the facility's radiology CT exam operational policy. Comparison: None available. Pulmonary arteries: There are bilateral acute pulmonary emboli. On the left, there is a saddle embolus at the bifurcation of the left main pulmonary artery, with extensive clot extending into the left upper and lower lobes. On the right, there are moderate-sized emboli in the right upper lobe and right lower lobe, and there are small emboli in the right middle lobe. There is no evidence of embolus in the main pulmonary artery. The right ventricle is not appreciably dilated, but the right atrium appears dilated, compatible with elevated pulmonary artery pressure. Aorta and great vessels: There is mild atherosclerotic calcification in the aortic wall. There are no signs of aortic aneurysm or dissection. Heart and pericardial soft tissues: Atherosclerotic calcification is present in the coronary arteries. The heart is enlarged. No pericardial effusion or soft tissue abnormality is identified. Mediastinal soft tissues: Unremarkable. Lung fernandez: Well-expanded. No focal parenchymal consolidation or volume loss are identified. A few tiny, nonspecific nodular opacities are present. Pleural spaces: No evidence of effusion, focal pleural thickening, or pneumo thorax. Skeletal structures: There are chronic degenerative changes in the shoulder and thoracic spine. No fracture or compression deformity is identified. Upper abdomen: Unremarkable, as visualized. IMPRESSION: Bilateral acute pulmonary emboli, with a significant clot burden in both lungs, left more than right. A preliminary report was called to Dr. Baxter at [facility] [place] at 0130 hours. Report Dictated By: Fili Morris MD at 03/19/2019 1:30 AM Report E-Signed By: Fili Morris MD at 03/19/2019 1:56 AM [id number] Assessment and Plan Problems: (1) Pulmonary embolism Status: Acute Assessment & Plan: She has probably had several emboli over the past couple of weeks. She has fairly significant clot burden, but is quite stable at this time. She has been started on Lovenox 1mg/Kg SQ q12hrs. Will plan on transition to oral anticoagulant for skilled nursing therapy. She does require oxygen supplementation at 2-3L via nasal cannula. Will check the hypercoagulable studies we can while she is on anticoagulation therapy. Will check bilateral LE venous ultrasound. (2) HTN (hypertension) Status: Chronic Assessment & Plan: She has modest elevation of her BPs. She has been on an unusual regimen with clonidine (1/2 of a 0.1mg tab daily as needed), so will actually hold it for now. Will continue her diltiazem ext release 180mg daily and contineu her enalapril 10mg but a twice a day instead of once. Will hold her HCTZ for now (she received IV contrast), but will probably need to resume. Watch BPs closely. (3) Chronic kidney disease Status: Chronic Assessment & Plan: Creatinine was 1.2 in ER and is now 1.1 today. Will give gentle IV fluids and watch labs. (4) Acid reflux disease Status: Chronic Assessment & Plan: Continue Protonix 40mg BID. Copies to: MIRIAM REYNAGA [employer]ER-BC, ONC ; Venous Thromboembolism Antithrombotics Is Pt On Any Antithrombotics?: Yes Exam Sepsis Risk: No Definite Risk Problem Qualifiers (1) Pulmonary embolism: Pulmonary embolism type: saddle Chronicity: acute Acute cor pulmonale presence: without acute cor pulmonale Qualified Codes: I26.92 - Saddle embolus of pulmonary artery without acute cor pulmonale (2) Chronic kidney disease: Chronic kidney disease stage: stage 3 (moderate) Qualified Codes: N18.3 - Chronic kidney disease, stage 3 (moderate) KENDELL MITCHELL MD Mar 19, 2019 10:01
[2019-03-19] MEDS: PANTOPRAZOLE SOD 40 MG TABEC PO SCH ×2 (11:58→20:16)
[2019-03-19] MEDS: DILTIAZEM CD 180 MG CAPCR PO SCH (11:58)
[2019-03-19] MEDS: FENOFIBRATE,MICRON 145 MG TAB PO SCH (11:58)
[2019-03-19] MEDS: ENOXAPARIN 100 MG/ML SYR SC SCH ×2 (12:01→20:17)
[2019-03-19 12:29] VITALS: BP 170/89
[2019-03-19] MEDS: ENALAPRIL MALEATE 10 MG TAB PO SCH ×2 (12:30→20:17)
--- NOTE | 2019-03-19 13:02 | RADIOLOGY IMAGING REPORT ---
FACILITY: [facility] PATIENT NAME: Orquidea Gracia : 1935 MR: [id number] V: [id number] EXAM DATE: ORDERING PHYSICIAN: KENDELL MITCHELL TECHNOLOGIST: Location: [facility] [place] Patient: Orquidea Gracia : 1935 Visit/Account:[id number] Date of Sevice: 03/19/2019 Bilateral lower extremity duplex venous ultrasound Indication: Leg swelling Comparison: None Available Findings: Duplex Doppler and color flow imaging was performed. The bilateral common femoral, femoral , and popliteal veins are all patent and compressible with normal Doppler wave forms. There are norm al responses to augmentation. The proximal greater saphenous veins are also normal. Impression: 1. No evidence of deep venous thrombosis of the bilateral lower extremities. Report Dictated By: Angel Montes at 03/19/2019 12:53 PM Report E-Signed By: Angel Montes at 03/19/2019 12:54 PM [id number]
[2019-03-19] MEDS ORDERED: NIAC500T85 PO (13:59)
[2019-03-19] MEDS ORDERED: [UNRECOGNIZED DRUG - CODE] PO (13:59)
[2019-03-19] MEDS ORDERED: CALC-901 PO (13:59)
[2019-03-19] MEDS ORDERED: LACT1CAP6 PO (13:59)
[2019-03-19] MEDS ORDERED: ZINC50TA9 PO (13:59)
[2019-03-19] MEDS ORDERED: CHOL10005 PO (13:59)
[2019-03-19] MEDS ORDERED: MAGN400T52 PO (13:59)
[2019-03-19] MEDS ORDERED: VITA-197 PO (13:59)
[2019-03-19 15:17] VITALS: BP 132/83
[2019-03-19 19:05] VITALS: BP 134/74
[2019-03-19 23:08] VITALS: BP 144/85
[2019-03-20 02:07] VITALS: BP 147/83
[2019-03-20 06:01] LABS: PLATELET COUNT, AUTOMATED 148 K/uL (150-450)
[2019-03-20] MEDS: ENALAPRIL MALEATE 10 MG TAB PO SCH (09:00)
[2019-03-20] MEDS: DILTIAZEM CD 180 MG CAPCR PO SCH (09:00)
[2019-03-20 09:14] VITALS: BP 119/63
[2019-03-20] MEDS: FENOFIBRATE,MICRON 145 MG TAB PO SCH (09:16)
[2019-03-20] MEDS: PANTOPRAZOLE SOD 40 MG TABEC PO SCH (09:16)
[2019-03-20] MEDS: ENOXAPARIN 100 MG/ML SYR SC SCH (09:16)
[2019-03-20] MEDS ORDERED: RIVA1TAB PO (09:49)
--- NOTE | 2019-03-20 09:54 | Hospitalist Depart ---
Discharge Summary Reason for Hosp/Final Diag: (1) Pulmonary embolism Status: Acute Hospital Course & Plan: She has probably had several emboli over the past couple of weeks. She has fairly significant clot burden, but is quite stable at this time. She was started on full dose Lovenox at admission. She will transition to Xarelto at discharge. A hypercoagulable workup is pending. (2) HTN (hypertension) Status: Chronic Hospital Course & Plan: She is on chronic treatment with diltiazem, enalapril, and hydrochlorothiazide. (3) Chronic kidney disease Status: Chronic Hospital Course & Plan: Creatinine was 1.2 in ER and is now 1.1 today. Will give gentle IV fluids and watch labs. (4) Acid reflux disease Status: Chronic Hospital Course & Plan: Continue Protonix 40mg BID. Departure Latest Vital Signs Vital Signs 03/20/19 03/20/19 09:13 09:14 Temp 97.8 Pulse 75 Resp 24 B/P (MAP) 119/63 (81) Pulse Ox 91 O2 Delivery Room Air O2 Flow Rate 2.0 Weight (Pounds): 173 Weight (Ounces): 8.0 Result Diagram: 03/20/19 0505 03/20/19 0505 Condition: Improved Discharge: Home, Self Care Discharge Instructions Home Meds Active Scripts Rivaroxaban (Xarelto) 1 Each Tab.ds.pk, 1 DOSE-PACK PO DIRECTED, #1 DOSE-PACK Take 15mg twice daily for 21 days, then 20mg once daily Prov:KEELEY HIDALGO 03/20/19 Reported Medications Calcium Citrate/Vitamin D3 (CALCIUM CITRATE - VIT D CAPLET) 1 Each Tablet, 6 TAB PO QDAY 1200 MG CALCIUM WITH 1500 IU VIT D 03/19/19 Zinc (ZINC) 50 Mg Tablet, 50 MG PO QHS 03/19/19 Niacin (NIACIN) 500 Mg Tablet, 500 MG PO QHS 03/19/19 Lactobacillus Combination No.4 (PROBIOTIC) 1 Each Capsule, 1 CAP PO QDAY, CAPSULE BRAND: FORTIFY 50 BILLION 03/19/19 Magnesium Oxide (MAGOX 400) 400 Mg Tablet, 4 TAB PO QDAY 03/19/19 Cholecalciferol (Vitamin D3) (VITAMIN D3) 1,000 Unit Tablet, 2000 UNIT PO DAILY, TAB 03/19/19 Cyanocobalamin (Vitamin B-12) (Vitamin B-12) 3,000 Mcg Capsule, 2 CAP PO BID 03/19/19 Vitamin E Mixed (VITAMIN E) 400 Unit Capsule, 400 UNIT PO QDAY, CAPSULE 03/19/19 Folic Acid (FOLIC ACID) 1 Mg Tablet, 1 MG PO QDAY, TAB 09/28/16 Diltiazem Hcl (DILTIAZEM ER) 180 Mg Cap.er.deg, 180 MG PO DAILY 09/28/16 Enalapril/Hydrochlorothiazide (ENALAPRIL-HCTZ 10-25 MG TABLET) 1 Each Tablet, 2 TAB PO QAM 07/24/16 Potassium Chloride (POTASSIUM CHLORIDE) 10 Meq Tab.er.prt, 10 MEQ PO BID 07/24/16 Pantoprazole Sodium (PANTOPRAZOLE SODIUM) 40 Mg Tablet.dr, 40 MG PO BID, TAB.SR 03/19/15 Fenofibrate,Micronized (Tricor) 145 Mg Tablet, 145 MG PO DAILY, 0 Refills 04/15/10 Discontinued Reported Medications Clonidine Hcl (CLONIDINE HCL) 0.1 Mg Tablet, 1 TAB PO PRN, #30 03/07/17 Discontinued Scripts Hydrocodone Bit/Acetaminophen (HYDROCODON-ACETAMINOPHEN 5-325) 1 Each Tablet, 1 EACH PO Q4-6H PRN for PAIN, #30 TAB Prov:JAIRO LOU MD 09/28/16 Diet: Regular Activity: As Tolerated Copies to: MIRIAM REYNAGA JAR FILLER-BC, ONC ; Venous Thromboembolism Antithrombotics Is Pt On Any Antithrombotics?: Yes Problem Qualifiers (1) Pulmonary embolism: Pulmonary embolism type: saddle Chronicity: acute Acute cor pulmonale presence: without acute cor pulmonale Qualified Codes: I26.92 - Saddle embolus of pulmonary artery without acute cor pulmonale (2) Chronic kidney disease: Chronic kidney disease stage: stage 3 (moderate) Qualified Codes: N18.3 - Chronic kidney disease, stage 3 (moderate) KEELEY HIDALGO DO Mar 20, 2019 09:54
== END 2019-03-20 11:30 | disposition home or self-care (01) | DRG 176 ==
LOC: ER 23:46 → MED 03-19 07:03
PROVIDERS: ADMIT Family Medicine; ATTEND Family Medicine
DX: I26.99 Other pulmonary embolism without acute cor pulmonale (principal); K21.9 Gastro-esophageal reflux disease without esophagitis; I48.2 Chronic atrial fibrillation; I12.9 Hypertensive chronic kidney disease with stage 1 through stage 4 chronic kidney disease, or unspecified chronic kidney disease; N18.3 Chronic kidney disease, stage 3 (moderate); E78.5 Hyperlipidemia, unspecified; G62.9 Polyneuropathy, unspecified; Z88.0 Allergy status to penicillin; Z88.2 Allergy status to sulfonamides; Z88.5 Allergy status to narcotic agent
CPT/HCPCS: 36415; 71045; 71275; 81241; 81291; 82040; 82150; 82247; 82310; 82374; 82435; 82565; 82947; 83090; 83690; 83880; 84075; 84132; 84155; 84295; 84450; 84460; 84484; 84520; 85025; 85379; 86147; 93970; 96361; 96374; 99285; C9113; J1650; J7030; J7050; Q9967

== ENCOUNTER → 2019-03-18 | Outpatient (CLI) | payer MEDICARE ==
[2016-09-28 12:45] VITALS: BMI 30.6
[~2019-03-18] MED LIST changes: +CALC-901 PO; +CHOL10005 PO; +LACT1CAP6 PO; +MAGN400T52 PO; +NIAC500T85 PO; +RIVA1TAB PO; +VITA-197 PO; +ZINC50TA9 PO; +[UNRECOGNIZED DRUG - CODE] PO
== END ==
LOC: AMB 23:14
PROVIDERS: ATTEND Nurse Practitioner
DX: R07.9 Chest pain, unspecified (principal); R06.00 Dyspnea, unspecified
CPT/HCPCS: A0425; A0427